=== PATIENT | male | born 2000 | race Caucasian/White ===

== ENCOUNTER 2025-02-14 17:00 | Emergency (ER) | payer OTHER, SELFPAY ==
[2025-02-14] MEDS ORDERED: Ibuprofen 200 MG TAB ONE (18:10)
[2025-02-14] MEDS ORDERED: HYDROcodone/Acetaminophen 5/325 mg Tablet ONE (18:18)
== END 2025-02-14 18:24 | disposition home or self-care (01) ==
LOC: BURERS 17:00
DX: S62.632A Displaced fracture of distal phalanx of right middle finger, initial encounter for closed fracture (principal); S62.634A Displaced fracture of distal phalanx of right ring finger, initial encounter for closed fracture; S60.131A Contusion of right middle finger with damage to nail, initial encounter; S60.141A Contusion of right ring finger with damage to nail, initial encounter; F17.210 Nicotine dependence, cigarettes, uncomplicated; W23.1XXA Caught, crushed, jammed, or pinched between stationary objects, initial encounter
CPT/HCPCS: 99283